=== PATIENT | female | born 1995 | race Caucasian/White ===

== ENCOUNTER 2018-08-03 12:32 | Emergency (ER) | payer BC, OTHER ==
[2018-08-03] MEDS ORDERED: NS 1,000 ML IV ONE (13:01)
[2018-08-03] MEDS ORDERED: ONDANSETRON 4 MG/2 ML VIAL IVP PRN (13:01)
--- NOTE | 2018-08-03 13:01 | EDPHY ---
General - History Smoking Status: Never smoked Time Seen by Provider: 08/03/18 13:00 Narrative: CLINICAL IMPRESSION: Lower Abdominal cramping, vaginal bleeding, nausea, vomiting; malpositioned IUD ASSESSMENT/PLAN: Patient is a 23 year old female who presents who presents with lower abdominal cramping, vaginal bleeding, nausea and vomiting. Patient is afebrile and nontoxic appearing, she is in no acute distress on arrival. Her abdomen is soft, tenderness in the suprapubic region and very low right greater than left lower quadrants. Vital signs remained stable while in the ED, no signs of sepsis or serious bacterial illness. negative. CBC with mild leukocytosis of 11,000, suspect reactive. BMP with no significant metabolic abnormality US with no cystic or solid adnexal masses, no intraperitoneal fluid , normal blood flow. No e/o torsion, no ovarian cyst, TOA and no e/o surgical abdomen. Her IUD however was noted to be obliquely malpositioned. This patient presents with lower abdominal cramping, likely related to her malpositioned IUD. I called OBGYN and discussed this case with Dr. Garcia who recommended pain control and follow up with her tomorrow for IUD removal under ultrasound guidance. The patient declined any need for pain medication while in the emergency department, she feels that she can control her pain with Tylenol and ibuprofen. I have a very low suspicion for other etiologies of her lower abdominal cramping to include appendicitis, ischemic bowel, bowel perforation or any other life threatening disease. She has had no urinary symptoms to suggest UTI; no vaginal discharge and I have a low suspicion for PID. The patient was provided a referral and will call this afternoon to schedule the appointment for tomorrow to be seen and evaluated. On reexamination the patient denies any pain at all, her abdomen was soft and nontender to palpation in all quadrants. Conservative return precautions discussed-she will return for significantly worsening pain, significant bleeding , fever or for any other concerning symptom. Patient and both of her parents verbalized understanding and they are all in agreement with this plan. DIFFERENTIAL DX: Abdominal pain in a female including but not limited to ovarian cyst, pelvic inflammatory disease, ovarian torsion, urinary tract infection, and appendicitis. ED COURSE: 1311: Case discussed with Dr. Constantino 1322: I discussed this case with Dr. Garcia, she recommends follow-up tomorrow with IUD removal under ultrasound. CHIEF COMPLAINT: Pelvic pain, vaginal bleeding, nausea and vomiting HPI: Patient is a female who presents to the emergency department with complaints of pelvic pain, vaginal bleeding, nausea and vomiting. Patient reports this morning at 9:00 a.m. She had a sudden onset of abdominal cramping which she attributed to starting her menses which was expected. She continued to have increased discomfort, right side greater the left. She does describe it as cramping in nature, waxes and wanes. She has never experienced cramps this intense before. Patient does currently have an IUD, it was placed last year, no reported issues. Patient reports associated nausea and vomiting after she started experiencing her discomfort, denies any hematemesis. She has not had any chest pain or shortness of breath. She has felt like she has needed to take a bowel movement on multiple occasions but has not been able to. She denies any urinary symptoms to include dysuria, hematuria or increased frequency , she has no flank pain. No history of abdominal surgeries, history of remote . She denies any excessive bleeding, she is currently using a menses cup in lieu of pad or tampon. She is sexually active with 1 partner, denies any vaginal discharge, vaginal pain or concern for STI. PMH: Denies Pertinent Past Surgical History: Denies Family History: Noncontributory Social History: Denies REVIEW OF SYSTEMS: All other systems negative Constitutional: Chilled. No fever or appetite change. Eyes: No discharge, vision change ENT: No sore throat, congestion, ear pain. Cardiovascular: No chest pain, no palpitations. Respiratory: No cough, no shortness of breath. Gastrointestinal: Lower abdominal cramping, nausea, vomiting. Genitourinary: No hematuria, dysuria, flank pain. Musculoskeletal: No back pain, joint swelling, joint pain, myalgias. Skin: No rashes, color change. Neurological: No headache, dizziness, weakness. PHYSICAL EXAM: General Appearance: Well-developed, no acute distress and not toxic-appearing. HENT: Normocephalic, atraumatic. Bilateral external ears are normal. Bilateral tympanic membranes are normal with pearly raya reflex. Nares are clear, mucosa is pink. Oropharynx is clear however mucosa is dry, uvula is midline. There is no tonsillar enlargement or exudate. The dentition is normal. Eyes: PERRLA, no acute vision change, nystagmus, swelling, discharge, pain or photosensitivity. Conjunctiva pink, no pallor or injection. Neck: Supple, nontender, no lymphadenopathy, no midline pain, FROM, no meningismus. Respiratory: There are no retractions, lungs are clear to auscultation. Cardiac: Regular rate and rhythm, no murmurs or gallops. Gastrointestinal: Abdomen is soft, bowel sounds normal, no masses/hernia; patient with tenderness to palpation in the suprapubic region and very low left lower quadrant. There is no McBurney's point tenderness, negative Bro sign and negative Rovsing's. No rigidity, guarding or focal peritoneal findings. Neurological: Alert and oriented x 3, CN 2-12 grossly intact, normal gait no ataxia, DTR's intact, normal sensation and strength Skin: Warm, dry, no rashes, no nodules on palpation. Musculoskeletal: Extremities are symmetrical, full range of motion, no tenderness, deformity, swelling, or erythema. Psychiatric: Patient is oriented X 3, there is no agitation. MEDICAL DECISION MAKING: Patient was seen independently. Secondary supervising physician at time of evaluation was Dr. Constantino. Diagnosis: Pelvic pain, vaginal bleeding, nausea and vomiting. New, requires workup Summary: See Assessment and Plan for summary of ED visit Clinical lab tests: ordered / reviewed. Independent visualization of images, tracing, or specimens: Yes. Decision to obtain medical records or history from someone other than the patient: Yes, parents Review / Summarize previous medical records: Yes Discussed patient with another provider: Yes, Dr. Constantino Patient Progress: Stable, discharge. (Taylor Staples) Discussion: The patient was evaluated and managed by the Physician Prototype Sewer. I discussed the patient's presentation and course with the physician assistant program manager and agree with the evaluation. My co-signature indicates that I have reviewed this chart and I agree with the findings and plan of care as documented. I am the secondary supervising physician. (Fabiana Constantino) - Objective Vital Signs: Initial Vital Signs Temperature (C) 36.8 C 08/03/18 12:36 Heart Rate 76 08/03/18 12:36 Respiratory Rate 18 08/03/18 12:36 Blood Pressure 92/61 L 08/03/18 12:36 O2 Sat (%) 97 08/03/18 12:36 O2 Delivery Mode Room Air Allergies/Adverse Reactions: amoxicillin Allergy (Verified 08/03/18 12:36) Rash Home Medications: Medication Instructions Recorded NK [No Known Home Meds] 08/03/18 Laboratory Results: Laboratory Results 08/03/18 13:10 08/03/18 13:10 Medications Given: Discontinued Medications Sodium Chloride (Ns) 1,000 mls @ 0 mls/hr IV ONCE ONE PRN Reason: Wide Open Stop: 08/03/18 13:02 Last Admin: 08/03/18 13:09 Dose: 1,000 mls Ondansetron HCl (Zofran) 4 mg IVP Q4 PRN PRN Reason: Nausea/Vomiting, Can't Take PO Stop: 01/30/19 13:00 Last Admin: 08/03/18 13:09 Dose: 4 mg Departure - Departure Disposition: Home, Routine, Self-Care Clinical Impression: Malpositioned IUD Condition: Good Instructions: Pelvic Pain in Women (ED) Additional Instructions: DISCHARGE INSTRUCTIONS FROM YOUR DOCTOR Thank you for visiting our emergency department today. Please keep in mind that discharge from the emergency department does not mean that there is nothing wrong - it simply means that we have not identified an emergency condition that requires further evaluation or treatment in the hospital. You have been given a referral for OBGYN, it is very important that you call today to schedule an appointment to be seen tomorrow. I spoke with Dr. Garcia who recommends formal OBGYN evaluation, please call today to schedule an appointment. You will likely need her IUD removed under ultrasound. For pain control: You may take Tylenol, I recommend 500-1000 mg every 6-8 hours as needed. Take with food and a full glass of water. Stop taking if this is upsetting her stomach. Do not exceed 4000 mg in a 24 hr period. You may also take ibuprofen, recommend 400 mg every 6 hr. Take with food and a full glass of water. Stop taking if this upsets her stomach. Do not exceed 2400 mg in a 24 hr period. People present with illnesses and injuries in different ways, and it is always possible that we have missed something. You may always return for re-evaluation if symptoms worsen or if they are not improving or if you develop new/different symptoms. Again, thank you for choosing our emergency department. We hope that you feel better. Referrals: Terrell Boyer MD [Primary Care Provider] - As per Instructions Grace Garcia DO [Doctor of Osteopathy] - 1 day without fail (Call to be seen)
[2018-08-03 13:29] LABS: PLATELET COUNT 328 10^3/uL (150-400)
[2018-08-03 15:15] VITALS: BP 115/67
== END 2018-08-03 15:15 | disposition home or self-care (01) ==
DX: T83.32XA Displacement of intrauterine contraceptive device, initial encounter (principal); Y76.2 Prosthetic and other implants, materials and accessory obstetric and gynecological devices associated with adverse incidents; R11.2 Nausea with vomiting, unspecified
CPT/HCPCS: 96374; J2405